=== PATIENT | male | born 1965 | race Two or more races ===

== ENCOUNTER 2024-06-17 05:30 | Day surgery (SDC) | payer OTHER ==
[2024-06-16 08:14] LABS: HEMATOCRIT 46.4 % (39.0-48.0); HEMOGLOBIN 16.2 g/dL (13-16.00); MEAN CELL VOLUME 83.8 fL (80.0-100.00); MEAN CORPUSCULAR HEMOGLOBIN 29.3 pg (27.00-32.0); MEAN CORPUSCULAR HGB CONC 34.9 g/dl (32.0-36.0); PLATELET COUNT 272 K/uL (150-450); RED BLOOD COUNT 5.54 M/uL (4.00-6.00); RED CELL DISTRIBUTION WIDTH 13.7 % (11.5-14.5)
[2024-06-16 08:26] VITALS: BP 153/97
[2024-06-16 08:31] LABS: URINE APPEARANCE Clear; URINE BILIRRUBIN Negative (NEGATIVE); URINE BLOOD Negative; URINE COLOR Yellow; URINE KETONE Negative (NEGATIVE); URINE LEUKOCYTE Negative; URINE NITRATE Negative; URINE PROTEIN Trace (NEGATIVE); URINE UROBILINOGEN 0.2 E.U./dl
[2024-06-16 08:35] LABS: URINE BACTERIA 8.5 uL (0.0-1933); URINE EPITHELIAL CELLS 2.8 uL (0.0-38.8); URINE WBC 4.2 uL (0.0-23.2)
[2024-06-16 08:40] LABS: URINE GLUCOSE >=1000 MG/DL (NEGATIVE); URINE RBC 0.7 uL (0.0-20.8)
[2024-06-16 08:57] LABS: INR 1.01; PARTIAL THROMBOPLASTIN TIME 27.4 SECONDS (22.0-34.0)
[2024-06-16 09:04] LABS: ALBUMIN 3.7 gm/dL (3.4-5.0); CALCIUM 9.1 mg/dL (8.5-10.1); CREATININE SERUM 1.06 mg/dL (0.70-1.30); GFR 71.76; GLOBULINA 3.9 G/DL (2.4-3.5); POTASSIUM 4.74 mEq/L (3.5-5.1); TOTAL PROTEIN 7.6 gm/dL (6.4-8.2)
[~2024-06-17] VITALS: Ht 182.9 cm; Wt 117.9 kg
[~2024-06-17 05:30] MED LIST: COZAAR50 MG PO; FARXIGA10 MG PO; LIPITOR20 MG PO; NOVOLIN 70100 UNIT/1
[2024-06-17] MEDS ORDERED: CEFAZOLIN SODIUM 1,000 MG VIAL ONE (16:36)
[2024-06-17] MEDS ORDERED: BUPIVACAINE HCL/MPF 0.5% 30ML VIAL ONE (17:08)
[2024-06-17] MEDS ORDERED: MORPHINE SULFATE 4 MG/ML VIAL IV ONE ×2 (19:15→19:45)
== END 2024-06-17 20:40 | disposition home or self-care (01) ==
LOC: CIR.AMB 05:30
PROVIDERS: ATTEND Orthopaedic Surgery Hand Surgery
DX: S52.532A Colles' fracture of left radius, initial encounter for closed fracture (principal); Z88.1 Allergy status to other antibiotic agents; I10 Essential (primary) hypertension; E11.9 Type 2 diabetes mellitus without complications
CPT/HCPCS: 25609; 25118; L8699